=== PATIENT | male | born 1955 | race African-American/Black ===

== ENCOUNTER 2023-05-31 17:40 | Inpatient (IN) | payer MEDICARE ==
[~2023-05-31] VITALS: Ht 182.9 cm; Wt 78.5 kg
[2023-05-31] MEDS ORDERED: HALOPERIDOL LACTATE INJ 5 MG/ML VIAL ONE (18:02)
[2023-05-31] MEDS ORDERED: LORAZEPAM INJ 2 MG/ML VIAL ONE (18:03)
[2023-05-31] MEDS ORDERED: diphenhydrAMINE HCL 50 MG/ML VIAL ONE (18:03)
[2023-05-31] MEDS: LORAZEPAM INJ 2 MG/ML VIAL IM ONE (18:13)
[2023-05-31] MEDS: HALOPERIDOL LACTATE INJ 5 MG/ML VIAL IM ONE (18:13)
[2023-05-31] MEDS: diphenhydrAMINE HCL 50 MG/ML VIAL IM ONE (18:13)
[2023-05-31] MEDS ORDERED: ALBUT2 IH (18:34)
[2023-05-31] MEDS ORDERED: SENN-261 PO (18:34)
[2023-05-31] MEDS ORDERED: LABE100T5 PO (18:34)
[2023-05-31] MEDS ORDERED: NICO-676 TD (18:34)
[2023-05-31] MEDS ORDERED: AMLO10TA4 PO (18:34)
[2023-05-31] MEDS ORDERED: LORA-258 PO (18:34)
[2023-05-31] MEDS ORDERED: MAGN400O6 PO (18:34)
[2023-05-31] MEDS ORDERED: QUET25TA PO (18:34)
[2023-05-31] MEDS ORDERED: BISA10SU11 RC (18:34)
[2023-05-31] MEDS ORDERED: OLAN5TAB3 PO (18:34)
[2023-05-31] MEDS ORDERED: DIVA-78 PO (18:34)
[2023-05-31] MEDS ORDERED: ACET-868 PO (18:34)
[2023-05-31] MEDS ORDERED: NA P133E RC (18:34)
[2023-05-31 18:40] LABS: APPEARANCE,URINE Clear (CLEAR); BILIRUBIN,URINE SMALL (NEGATIVE); BLOOD, URINE Negative Ery/uL (NEGATIVE); COLOR,URINE YELLOW (YELLOW); KETONES,URINE 15 mg/dL (NEGATIVE); LEUKOCYTE ESTERASE ,URINE Negative (NEGATIVE); NITRITE, URINE Negative (NEGATIVE); PH,URINE 5.5 (5.0-8.0); PROTEIN,URINE Trace mg/dl (NEGATIVE); UGLUCOSE Negative (NEGATIVE)
[2023-05-31 18:54] LABS: AMPHETAMINE, URINE NEGATIVE (NEGATIVE); BARBITURATE, URINE NEGATIVE (NEGATIVE); BENZODIAZEPINE, URINE NEGATIVE (NEGATIVE); CANNABINOID, URINE NEGATIVE (NEGATIVE); COCCAINE, URINE NEGATIVE (NEGATIVE); OPIATE, URINE NEGATIVE (NEGATIVE); PHENCYCLIDINE SCREEN,URINE NEGATIVE (NEGATIVE)
[2023-05-31 21:08] LABS: ALANINE AMINOTRANSFERASE 26 U/L (12-78); ALBUMIN 2.8 g/dL (3.4-5.0); ALKALINE PHOSPHATASE 122 U/L (46-116); ASPARTATE AMINOTRANSFERASE 28 U/L (15-37); BILIRUBIN,DIRECT 0.2 mg/dL (0.0-0.2); BILIRUBIN,TOTAL 0.5 mg/dL (0.2-1.0); CALCIUM, SERUM 8.7 mg/dL (8.5-10.1); CARBON DIOXIDE 32 mmol/L (21-32); CHLORIDE 107 mmol/L (98-107); CREATININE 1.3 mg/dL (0.6-1.3); GLUCOSE 99 mg/dL (74-106); POTASSIUM 4.7 mmol/L (3.5-5.1); SODIUM SERUM 143 mmol/L (136-145); TOTAL PROTEIN, SERUM 7.8 g/dL (6.4-8.2); UREA NITROGEN, BLOOD 28 mg/dL (7-18)
[2023-05-31 21:17] LABS: SALICYLATE 1.8 mg/dL (2.8-20.0)
[2023-05-31 21:18] LABS: ACETAMINOPHEN <10 ug/ml (10-30); ALCOHOL, BLOOD < 3 mg/dL (0-10)
[2023-05-31] MEDS ORDERED: MAG HYDROX/AL HYDROX/SIMETH 30 ML UDC PO PRN (21:30)
[2023-05-31] MEDS ORDERED: MAGNESIUM HYDROXIDE 30 ML UDC PO PRN (21:30)
[2023-05-31] MEDS ORDERED: QUETIAPINE FUMARATE 25 MG TABLET PO PRN (21:30)
[2023-05-31] MEDS: BLOOD SUGAR DIAGNOSTIC 1 EACH STRIP IN ONE (22:22)
[2023-05-31 22:47] VITALS: BP 142/80; TEMP 97.7; O2SAT 96
[2023-05-31 22:51] LABS: BASOPHILS % (AUTO) 0.4 % (0.0-2.0); EOSINOPHILS # (AUTO) 0.3 K/uL (0.0-0.7); EOSINOPHILS % (AUTO) 6.3 % (0.0-6.0); HEMATOCRIT 40 % (39-51); HEMOGLOBIN 13.2 g/dL (13.5-17.5); LYMPHOCYTES # (AUTO) 1.9 K/uL (0.8-4.8); LYMPHOCYTES % (AUTO) 37.5 % (20.0-44.0); MEAN CORPUSCULAR HEMOGLOBIN 34 PG (26.0-33.0); MEAN CORPUSCULAR HGB CONC 33 g/dl (31.0-36.0); MEAN CORPUSCULAR VOLUME 102 fL (80-96); MONOCYTES # (AUTO) 0.9 K/uL (0.1-1.30); MONOCYTES % (AUTO) 16.6 % (2.0-12.0); NEUTROPHILS % (AUTO) 39.2 % (43.0-81.0); PLATELET COUNT (AUTO) 98 K/uL (150-450); RED BLOOD CELL COUNT(AUTO) 3.88 MIL/uL (4.5-6.0); RED CELL DISTRIBUTION WIDTH 12.1 % (11.5-15.0); WHITE BLOOD COUNT (AUTO) 5.2 K/uL (4.3-11.0)
[2023-05-31] MEDS ORDERED: ALBUTEROL FS 2.5 MG/3 ML VIAL.NEB IH PRN (23:00)
[2023-06-01] LABS: BAND % (MANUAL) 2 % (0.0-5.0); LYMPHOCYTES % (MANUAL) 35 % (16-48); MONOCYTES % (MANUAL) 13 % (0-11.0)
[2023-06-01 00:01] LABS: EOSINOPHILS % (MANUAL) 4 % (0-4)
[2023-06-01 00:03] LABS: NEUTROPHILS % (MANUAL) 46 (42-76)
[2023-06-01 00:04] LABS: PLATELET ESTIMATE DECREASED
[2023-06-01 08:00] VITALS: BP 141/83; TEMP 97.8; O2SAT 100
[2023-06-01] MEDS: LABETALOL HCL (100MG) 100 MG TABLET PO SCH (09:00)
[2023-06-01] MEDS: NICOTINE PATCH (14MG) 14 MG PATCH.TD24 TD SCH (09:00)
[2023-06-01] MEDS: AMLODIPINE BESYLATE 10 MG TABLET PO SCH (09:00)
[2023-06-01 09:05] LABS: CREATININE 1.2 mg/dL (0.6-1.3)
[2023-06-01 09:11] LABS: CHOLESTEROL 105 mg/dL (<200); HDL CHOLESTEROL 53 mg/dL (40-60); LDL 49 mg/dL (0-99); TRIGLYCERIDES 32 mg/dL (30-150)
[2023-06-01] MEDS: DIVALPROEX SODIUM 250 MG TABLET.DR PO STA (12:25)
[2023-06-01] MEDS ORDERED: DIVALPROEX SODIUM 250 MG TABLET.DR PO SCH (13:00)
[2023-06-01] MEDS: DIVALPROEX SODIUM 125 MG CAP.SPRINK PO SCH (13:11)
[2023-06-01 16:00] VITALS: BP 117/72; TEMP 98.1; O2SAT 100
[2023-06-01] MEDS: OLANZAPINE 2.5 MG TABLET PO SCH (16:28)
[2023-06-01] MEDS: ACETAMINOPHEN 325 MG TABLET PO PRN (20:29)
[2023-06-01] MEDS: OLANZAPINE ZYDIS 5 MG TAB.RAPDIS PO PRN (20:46)
[2023-06-01] MEDS: TRAZODONE 50 MG TABLET PO SCH (21:46)
[2023-06-02 16:00] VITALS: BP_SYST 100; BP_SYST 147; BP_DIAS 60; BP_DIAS 90; TEMP 97.5; TEMP 98.9; O2SAT 100; O2SAT 98
[2023-06-03 08:00] VITALS: BP 126/87; TEMP 98; O2SAT 98
[2023-06-03 16:00] VITALS: BP 132/83; TEMP 97.9; O2SAT 98
[2023-06-03] MEDS: OLANZAPINE 5 MG TABLET PO SCH (17:27)
[2023-06-03] MEDS: ZOLPIDEM TARTRATE 5 MG TABLET PO PRN (23:00)
[2023-06-04 08:00] VITALS: BP 158/90; TEMP 98.6; O2SAT 94
[2023-06-04 16:00] VITALS: BP 120/78; TEMP 98.4; O2SAT 97
[2023-06-04 20:00] VITALS: BP 149/88; TEMP 98.4; O2SAT 97
[2023-06-05 08:00] VITALS: BP 156/86; TEMP 97.7; O2SAT 98
[2023-06-05 16:00] VITALS: BP 148/96; TEMP 97.8; O2SAT 99
[2023-06-05] MEDS: OLANZAPINE 2.5 MG TABLET PO SCH (16:35)
[2023-06-05 20:51] VITALS: BP 113/92; TEMP 97.9; O2SAT 99
[2023-06-06 08:00] VITALS: BP 124/90; TEMP 98.6; O2SAT 98
[2023-06-06 16:00] VITALS: BP 134/65; TEMP 98.1; O2SAT 98
[2023-06-06 20:54] VITALS: BP 100/79; TEMP 98.1; O2SAT 98
[2023-06-07 08:00] VITALS: BP 117/91; TEMP 97.8; O2SAT 99
[2023-06-07 16:00] VITALS: BP 137/67; TEMP 98.7; O2SAT 99
[2023-06-07] MEDS: OLANZAPINE 10 MG TABLET PO SCH (16:54)
[2023-06-07 21:18] VITALS: BP 116/72; TEMP 98.2; O2SAT 97
[2023-06-08 08:00] VITALS: BP 131/97; TEMP 97.8; O2SAT 100
[2023-06-08 16:00] VITALS: BP 114/74; TEMP 98.1; O2SAT 98
[2023-06-08 20:54] VITALS: BP 124/78; TEMP 98.4; O2SAT 100
[2023-06-08] MEDS: TRAZODONE 50 MG TABLET PO SCH (21:34)
[2023-06-09 08:00] VITALS: BP 145/93; TEMP 97.7; O2SAT 97
[2023-06-09 16:40] VITALS: BP 127/95; TEMP 98.1; O2SAT 98
[2023-06-10 08:36] VITALS: BP 144/86; TEMP 97.9; O2SAT 98
[2023-06-10 20:00] VITALS: BP 113/80; TEMP 98; O2SAT 97
[2023-06-10] MEDS: DIVALPROEX SODIUM 125 MG CAP.SPRINK PO SCH (21:36)
[2023-06-10 22:00] VITALS: BP 113/80
[2023-06-11 08:00] VITALS: BP 120/90; TEMP 97.9; O2SAT 98
[2023-06-11] MEDS: OLANZAPINE 10 MG VIAL IM ONE (11:34)
[2023-06-11 16:00] VITALS: BP 105/71; TEMP 98; O2SAT 95
[2023-06-11 20:00] VITALS: BP 128/86; TEMP 98.1; O2SAT 98
[2023-06-11 22:00] VITALS: BP 113/80
[2023-06-12 08:00] VITALS: BP 139/90; TEMP 98; O2SAT 94
[2023-06-12 10:00] VITALS: BP 139/90
[2023-06-12 16:00] VITALS: BP 136/86; TEMP 98.6; O2SAT 95
[2023-06-12 20:00] VITALS: BP 131/80; TEMP 98.3; O2SAT 97
[2023-06-12 22:00] VITALS: BP 131/80
[2023-06-13 08:00] VITALS: BP 127/79; TEMP 97.9; O2SAT 98
[2023-06-13 10:00] VITALS: BP 127/79
[2023-06-13] MEDS: OLANZAPINE 10 MG VIAL IM ONE (14:50)
[2023-06-13 16:00] VITALS: BP 139/85; TEMP 98.2; O2SAT 100
[2023-06-13 21:07] VITALS: BP 123/81; TEMP 98.2; O2SAT 98
[2023-06-13 22:00] VITALS: BP 133/81
[2023-06-14 08:00] VITALS: BP 137/89; TEMP 97.7; O2SAT 100
[2023-06-14 10:00] VITALS: BP 137/89
[2023-06-14 16:00] VITALS: BP 150/90; TEMP 97.8; O2SAT 97
[2023-06-14] MEDS: OLANZAPINE 10 MG TABLET PO SCH (21:32)
[2023-06-14 22:00] VITALS: BP 132/87
[2023-06-15] MEDS: OLANZAPINE 10 MG TABLET PO SCH (08:29)
[2023-06-15] MEDS: OLANZAPINE 10 MG VIAL IM ONE (11:28)
[2023-06-15 16:00] VITALS: BP 126/77; TEMP 98.1; O2SAT 98
[2023-06-15 22:07] VITALS: BP 113/80
[2023-06-16 08:00] VITALS: BP 109/81; TEMP 97.4; O2SAT 100
[2023-06-16] MEDS: OLANZAPINE 10 MG VIAL IM ONE (11:11)
[2023-06-16 16:00] VITALS: BP 137/88; TEMP 98; O2SAT 100
[2023-06-16 20:00] VITALS: BP 119/70; TEMP 98; O2SAT 98
[2023-06-17 08:00] VITALS: BP 127/90; TEMP 98; O2SAT 98
[2023-06-17 16:00] VITALS: BP 103/70; TEMP 98.9; O2SAT 98
[2023-06-17 20:00] VITALS: BP 117/72; TEMP 98; O2SAT 98
[2023-06-18 08:00] VITALS: BP 133/96; TEMP 97.5; O2SAT 99
[2023-06-18 16:00] VITALS: BP 127/71; TEMP 97.6; O2SAT 98
[2023-06-18 20:00] VITALS: BP 152/98; TEMP 98; O2SAT 97
[2023-06-19 08:00] VITALS: BP 131/88; TEMP 98.1; O2SAT 100
[2023-06-19 16:00] VITALS: BP 124/87; TEMP 98.9; O2SAT 97
[2023-06-20 08:00] VITALS: BP 133/96; TEMP 97.7; O2SAT 96
[2023-06-20 16:00] VITALS: BP 134/98; TEMP 98; O2SAT 98
[2023-06-20 20:34] VITALS: BP 122/62; TEMP 98; O2SAT 98
[2023-06-21 08:00] VITALS: BP 153/97; TEMP 98.7; O2SAT 97
[2023-06-21] MEDS: OLANZAPINE 10 MG VIAL IM PRN (13:28)
[2023-06-21 16:00] VITALS: BP 122/78; TEMP 98; O2SAT 99
[2023-06-21 21:12] VITALS: BP 106/66; TEMP 98.2; O2SAT 98
[2023-06-21] MEDS: OLANZAPINE 5 MG TABLET PO SCH (21:33)
[2023-06-21] MEDS: risperiDONE-M 0.5 MG TAB.RAPDIS PO SCH (21:33)
[2023-06-22 08:00] VITALS: BP 109/90; TEMP 98.1; O2SAT 97
[2023-06-22 16:00] VITALS: BP 109/90; TEMP 98.1; O2SAT 100
[2023-06-22 20:00] VITALS: BP 113/64; TEMP 98.2; O2SAT 100
[2023-06-23 08:00] VITALS: BP 129/60; TEMP 98.1; O2SAT 97
[2023-06-23] MEDS ORDERED: PALIPERIDONE PALMITATE 234 MG/1.5 ML SYRINGE IM ONE (11:00)
[2023-06-23] MEDS: PALIPERIDONE PALMITATE 234 MG/1.5 ML SYRINGE IM ONE (15:09)
[2023-06-23 16:00] VITALS: BP 105/65; TEMP 98.6; O2SAT 99
[2023-06-23 20:00] VITALS: BP 127/80; TEMP 98.4; O2SAT 98
[2023-06-24 08:00] VITALS: BP 129/90; TEMP 97.9; O2SAT 99
[2023-06-24 16:00] VITALS: BP 112/75; TEMP 97.7; O2SAT 100
[2023-06-24 20:00] VITALS: BP 131/93; TEMP 97.8; O2SAT 98
[2023-06-25 08:00] VITALS: BP 156/74; TEMP 97.7; O2SAT 100
[2023-06-25 08:07] LABS: BASOPHILS % (AUTO) 0.1 % (0.0-2.0); EOSINOPHILS # (AUTO) 0.4 K/uL (0.0-0.7); EOSINOPHILS % (AUTO) 8.9 % (0.0-6.0); HEMATOCRIT 40 % (39-51); HEMOGLOBIN 13.8 g/dL (13.5-17.5); LYMPHOCYTES # (AUTO) 2.1 K/uL (0.8-4.8); LYMPHOCYTES % (AUTO) 47.8 % (20.0-44.0); MEAN CORPUSCULAR HEMOGLOBIN 34 PG (26.0-33.0); MEAN CORPUSCULAR HGB CONC 34 g/dl (31.0-36.0); MEAN CORPUSCULAR VOLUME 99 fL (80-96); MONOCYTES # (AUTO) 0.6 K/uL (0.1-1.30); MONOCYTES % (AUTO) 13.8 % (2.0-12.0); NEUTROPHILS # (AUTO) 1.3 K/uL (1.8-8.9); NEUTROPHILS % (AUTO) 29.4 % (43.0-81.0); PLATELET COUNT (AUTO) 119 K/uL (150-450); RED BLOOD CELL COUNT(AUTO) 4.07 MIL/uL (4.5-6.0); RED CELL DISTRIBUTION WIDTH 11.9 % (11.5-15.0); WHITE BLOOD COUNT (AUTO) 4.4 K/uL (4.3-11.0)
[2023-06-25 09:14] LABS: ALBUMIN 2.9 g/dL (3.4-5.0); BILIRUBIN,TOTAL 0.7 mg/dL (0.2-1.0); CALCIUM, SERUM 8.8 mg/dL (8.5-10.1); POTASSIUM 5.2 mmol/L (3.5-5.1); TOTAL PROTEIN, SERUM 8.3 g/dL (6.4-8.2)
[2023-06-25 16:00] VITALS: BP 105/79; TEMP 98.8; O2SAT 99
[2023-06-25 20:31] VITALS: BP 121/74; TEMP 98.7; O2SAT 99
[2023-06-26 08:00] VITALS: BP 130/95; TEMP 97.6; O2SAT 99
[2023-06-26 16:00] VITALS: BP 118/73; TEMP 97.6; O2SAT 98
[2023-06-26 21:05] VITALS: BP 94/68; TEMP 97.9; O2SAT 98
[2023-06-27 08:00] VITALS: BP 127/78; TEMP 97.7; O2SAT 98
[2023-06-27 16:00] VITALS: BP 110/85; TEMP 97.9; O2SAT 97
[2023-06-27 20:25] VITALS: BP 103/55; TEMP 97.9; O2SAT 97
[2023-06-28 08:00] VITALS: BP 121/82; TEMP 97.7; O2SAT 100
[2023-06-28 16:00] VITALS: BP 127/78; TEMP 98; O2SAT 99
[2023-06-28 20:25] VITALS: BP 118/68; TEMP 97.3; O2SAT 96
[2023-06-29 08:00] VITALS: BP 123/90; TEMP 97.7; O2SAT 99
[2023-06-29] MEDS: PALIPERIDONE PALMITATE 156 MG/ML SYRINGE IM ONE (10:39)
[2023-06-29 16:00] VITALS: BP 103/79; TEMP 97.7; O2SAT 100
[2023-06-29] MEDS ORDERED: OLANZAPINE 10 MG VIAL IM PRN (18:30)
[2023-06-29 20:00] VITALS: BP 163/97; TEMP 98.1; O2SAT 96
[2023-06-29] MEDS: risperiDONE-M 0.5 MG TAB.RAPDIS PO SCH (20:22)
[2023-06-29 22:00] VITALS: BP 138/85; O2SAT 96
[2023-06-30 08:00] VITALS: BP 116/90; TEMP 98.9; O2SAT 95
[2023-06-30 08:38] VITALS: BP 116/90
== END 2023-06-30 15:45 | DRG 885 ==
LOC: EDBD 17:42 → ER 17:42 → GPS 20:25
PROVIDERS: ADMIT Psychiatry & Neurology Psychiatry; ATTEND Nurse Practitioner Acute Care
DX: F29 Unspecified psychosis not due to a substance or known physiological condition (principal); G93.41 Metabolic encephalopathy; F03.92 Unspecified dementia, unspecified severity, with psychotic disturbance; F03.93 Unspecified dementia, unspecified severity, with mood disturbance; G40.909 Epilepsy, unspecified, not intractable, without status epilepticus; F43.10 Post-traumatic stress disorder, unspecified; I10 Essential (primary) hypertension; I25.10 Atherosclerotic heart disease of native coronary artery without angina pectoris; E78.5 Hyperlipidemia, unspecified; I27.20 Pulmonary hypertension, unspecified; J44.9 Chronic obstructive pulmonary disease, unspecified; R62.50 Unspecified lack of expected normal physiological development in childhood; F39 Unspecified mood [affective] disorder; Z73.6 Limitation of activities due to disability; R00.1 Bradycardia, unspecified; Z20.822 Contact with and (suspected) exposure to COVID-19
CPT/HCPCS: 36415; 80048-TC; 80053-TC; 80061-TC; 80076-TC; 80164-TC; 82565-TC; 82962-TC; 85025-TC; 87081-TC; 97112-TC; 97116-TC; 97530-TC; G0480; J1200; J1630; J2060; J2426; J3490